=== PATIENT | female | born 1985 | race Caucasian/White ===

== ENCOUNTER 2020-09-30 22:25 | Emergency (ER) | payer MEDICAID ==
[~2020-09-30] VITALS: Ht 165.1 cm; Wt 52.6 kg
[2020-09-30 22:43] VITALS: BP_SYST 127
== END 2020-10-01 01:28 | disposition left against medical advice (07) ==
LOC: SED 22:25
DX: H92.01 Otalgia, right ear (principal); Z53.21 Procedure and treatment not carried out due to patient leaving prior to being seen by health care provider